=== PATIENT | male | born 1950 | race Two or more races ===

== ENCOUNTER 2021-02-05 10:45 | Inpatient (IN) | payer OTHER ==
[2021-02-05] MEDS ORDERED: ZESTORETIC 20-1 EACH PO (15:38)
[2021-02-05] MEDS ORDERED: BUPROPION HCL75 MG PO (15:39)
[2021-02-05] MEDS ORDERED: TAMS0.4C PO (15:39)
[2021-02-05] MEDS ORDERED: METFORMIN HCL750 MG PO (15:39)
[2021-02-05] MEDS ORDERED: CLONAZEPAM0.5 MG PO (15:40)
== END 2021-02-13 18:51 | disposition home or self-care (01) | DRG 395 ==
LOC: SURH 10:45 → O/R 02-11 08:25 → SURH 02-11 08:25
PROVIDERS: ADMIT Colon & Rectal Surgery; ATTEND Colon & Rectal Surgery
PROC: 0DBP8ZZ Excision of Rectum, Via Natural or Artificial Opening Endoscopic (ICD-10-PCS; principal; 2021-02-11 11:30)
DX: D12.8 Benign neoplasm of rectum (principal); F32.9 Major depressive disorder, single episode, unspecified; E11.9 Type 2 diabetes mellitus without complications; I11.9 Hypertensive heart disease without heart failure